=== PATIENT | female | born 1995 | race Caucasian/White ===

== ENCOUNTER → 2022-10-07 | Outpatient (CLI) | payer BC ==
[2022-10-07 16:05] LABS: BASOPHILS ABSOLUTE AUTO 0.06 K/mm3 (0.00-0.23); BASOPHILS PERCENT AUTO 1 % (0-2); EOSINOPHILS ABSOLUTE AUTO 0.12 K/mm3 (0.00-0.68); EOSINOPHILS PERCENT AUTO 1 % (0-6); Hematocrit 41.4 % (33.0-51.0); Hemoglobin 14.2 g/dL (11.5-16.0); IMMATURE GRAN ABSOLUTE AUTO 0.03 K/mm3 (0.00-0.10); IMMATURE GRAN PERCENT AUTO 0 % (0-1); LYMPHOCYTES ABSOLUTE AUTO 2.28 K/mm3 (0.84-5.20); LYMPHOCYTES PERCENT AUTO 22 % (21-46); MONOCYTES ABSOLUTE AUTO 0.83 K/mm3 (0.16-1.47); MONOCYTES PERCENT AUTO 8 % (4-13); Mean Corpuscular HGB 30.1 pg (26.0-34.0); Mean Corpuscular HGB Conc 34.3 g/dL (31.5-36.5); Mean Corpuscular Volume 88 fL (80-100); Mean Platelet Volume 10.2 fL (9.1-12.4); NEUTROPHILS ABSOLUTE AUTO 7.15 K/mm3 (1.96-9.15); NEUTROPHILS PERCENT AUTO 68 % (41-73); Platelet Count 284 K/mm3 (150-400); RDW Coefficient Variation 13.3 % (11.7-14.2); RDW Standard Deviation 42.9 fL (35.1-46.3); Red Blood Cell Count 4.72 M/mm3 (3.80-5.20); White Blood Cell Count 10.47 K/mm3 (4.00-11.30)
[2022-10-07 16:18] LABS: Very Low Density Lipoprot Chol 37 mg/dL (6-28)
[2022-10-07 16:27] LABS: Alanine Aminotransfer (ALT/SGP 28 U/L (12-78); Albumin, Blood 4.5 g/dL (3.4-5.0); Albumin/Globulin Ratio 1.3 (0.8-1.8); Alk Phos 88 U/L (50-136); Anion Gap 4 mmol/L (6-16); Aspartate Aminotrans (AST/SGOT 17 U/L (12-37); Bilirubin, Total 0.5 mg/dL (0.1-1.0); Blood Urea Nitrogen 11 mg/dL (8-24); Bun/Creatinine Ratio 15.8 (12.0-20.0); CHOL/HDL RATIO 3.7; CO2, Blood 29 mmol/L (21-32); Calcium, Blood 9.2 mg/dL (8.5-10.1); Chloride, Blood 105 mmol/L (98-108); Cholesterol 161 mg/dL (50-200); Globulin, Blood 3.4 g/dL (2.2-4.0); Glomerular Filtration Rate 121 (60-); Glucose, Blood 112 mg/dL (70-99); HDL Cholesterol 44 mg/dL (>39); LDL/HDL RATIO 1.8; Low Density Lipoprotein Chol 80 mg/dL (0-110); Potassium, Blood 3.9 mmol/L (3.5-5.5); Sodium, Blood 138 mmol/L (136-145); Total Protein, Blood 7.9 g/dL (6.4-8.2); Triglycerides 187 mg/dL (30-140)
== END | disposition home or self-care (01) ==
LOC: LAB SHORT 15:07 → LAB 15:07
PROVIDERS: Family Medicine
DX: Z00.00 Encounter for general adult medical examination without abnormal findings (principal)
CPT/HCPCS: 80053; 80061; 84443; 85025; 86900; 86901

== ENCOUNTER 2023-12-04 12:05 | Day surgery (SDC) | payer BC ==
[~2023-12-04] VITALS: Ht 167.6 cm; Wt 86.4 kg
[~2023-12-04 12:05] MED LIST: Lactated Ringer's 1,000 ML IV ONE
[2023-12-04] MEDS ORDERED: NS 50 ML IV ONE (12:16)
[2023-12-04] MEDS ORDERED: CeFAZolin Sodium 2,000 MG VIAL ONE (12:16)
[2023-12-04] MEDS ORDERED: AMOX-CLAV 875-1 EAC5 (12:25)
[2023-12-04] MEDS ORDERED: HYDROCODONE-AC1 EA19 (12:26)
[2023-12-04] MEDS ORDERED: Lactated Ringer's 1,000 ML IV ONE (12:38)
[2023-12-04] MEDS ORDERED: Midazolam HCl 1MG / ML 2ML Vial ONE (12:45)
[2023-12-04] MEDS ORDERED: propofoL 20 ML IV ONE (12:45)
[2023-12-04] MEDS ORDERED: FentaNYL Citrate 50 MCG/ML 2 ML Injection ONE ×2 (12:45→13:16)
[2023-12-04] MEDS ORDERED: Dexamethasone Sod Phos 10 MG/ML 1ML VIAL ONE (13:14)
[2023-12-04] MEDS ORDERED: Ondansetron HCl 2 MG / ML 2ML Vial ONE (13:14)
[2023-12-04 14:15] VITALS: BP 131/82
== END 2023-12-04 14:31 | disposition home or self-care (01) ==
LOC: ORSCSDS 12:05
PROVIDERS: Orthopaedic Surgery
PROC: 01S60ZZ Reposition Radial Nerve, Open Approach (ICD-10-PCS; principal; 2023-12-04 14:00)
DX: S64.31XA Injury of digital nerve of right thumb, initial encounter (principal); S69.91XA Unspecified injury of right wrist, hand and finger(s), initial encounter; W25.XXXA Contact with sharp glass, initial encounter
CPT/HCPCS: C1889; J0690; J1100; J2250; J2405; J2704; J3010; J7120

== ENCOUNTER → 2024-01-23 | Outpatient (CLI) | payer BC ==
[~2024-01-23] MED LIST changes: +AMOX-CLAV 875-1 EAC5; +HYDROCODONE-AC1 EA19; -Lactated Ringer's 1,000 ML IV ONE
[2024-01-24 11:32] LABS: Bacterial Vaginosis PCR Negative (NEGATIVE); Candida Group, PCR NOT DETECTED (NOT DETECT); Candida glabrata-krusei, PCR NOT DETECTED (NOT DETECT)
== END ==
LOC: LAB SHORT 18:57 → LAB 18:57
PROVIDERS: Family Medicine
DX: R30.0 Dysuria (principal)
CPT/HCPCS: 87481; 87661; 87801

== ENCOUNTER → 2024-01-23 | Outpatient (CLI) | payer BC | LOC: LAB 10:12 → LAB SHORT 10:12 | DX: R30.0 Dysuria (principal) | CPT/HCPCS: 87077; 87086; 87186 ==

== ENCOUNTER → 2024-05-14 | Outpatient (CLI) | payer BC | LOC: LAB SHORT 11:48 → LAB 11:48 | DX: N30.01 Acute cystitis with hematuria (principal) | CPT/HCPCS: 87077; 87086; 87186 ==